=== PATIENT | female | born 1995 | race Caucasian/White ===

== ENCOUNTER 2017-07-07 11:27 | Emergency (ER) | payer OTHER ==
[2017-07-07 11:48] VITALS: BP 95/56; PULSE 92; RESP 18; TEMP 98.7
[2017-07-07] MEDS ORDERED: cefTRIAXone 250 MG VIAL IM STA (12:00)
[2017-07-07] MEDS ORDERED: AZITHROMYCIN 500 MG TAB PO STA (12:01)
--- NOTE | 2017-07-07 12:17 | ED ---
General Adult HPI - General Chief complaint: Upper Respiratory Infection Stated complaint: Cough Time Seen by Provider: 07/07/17 11:56 Source: patient, RN notes reviewed Mode of arrival: ambulatory Limitations: no limitations - History of Present Illness Initial comments: Patient [id number] female who presents emergency room today with multiple complaints. She does admit that she's had cough congestion over the last month. She states seems to be getting worse. She doesn't seem production at times. Patient also admits that she was in a sexual relationship and her partner did tell her that they were positive for chlamydia. She states she has had some discharge and drainage vaginal. She denies any other complaints or associated symptoms at this time. Patient denies any recent fever, chills, shortness of breath, chest pain, back pain, abdominal pain, nausea or vomiting, numbness or tingling, dysuria or hematuria, constipation or diarrhea, headaches or visual changes, or any other complaints. - Related Data Home Medications Medication Instructions Recorded Confirmed No Known Home Medications [No 07/07/17 07/07/17 Known Home Medications] Allergies Allergy/AdvReac Type Severity Reaction Status Date / Time ibuprofen [From Motrin] Allergy Swelling Verified 07/07/17 12:01 Review of Systems ROS Statement: Those systems with pertinent positive or pertinent negative responses have been documented in the HPI. ROS Other: All systems not noted in ROS Statement are negative. Past Medical History Past Medical History: No Reported History History of Any Multi-Drug Resistant Organisms: None Reported Past Surgical History: No Surgical Hx Reported Past Psychological History: No Psychological Hx Reported Smoking Status: Current some day smoker Past Alcohol Use History: Occasional Past Drug Use History: None Reported General Exam - General Exam Comments Initial Comments: General: The patient is awake and alert, in no distress, and does not appear acutely ill. Eye: Pupils are equal, round and reactive to light, extra-ocular movements are intact. No nystagmus. There is normal conjunctiva bilaterally. No signs of icterus. Ears, nose, mouth and throat: There are moist mucous membranes and no oral lesions. Neck: The neck is supple, there is no tenderness or JVD. Cardiovascular: There is a regular rate and rhythm. No murmur, rub or gallop is appreciated. Respiratory: Lungs are clear to auscultation, respirations are non-labored, breath sounds are equal. No wheezes, stridor, rales, or rhonchi. Gastrointestinal: Soft, non-distended, non-tender abdomen without masses or organomegaly noted. There is no rebound or guarding present. No CVA tenderness. Bowel sounds are unremarkable. Musculoskeletal: Normal ROM, no tenderness. Strength 5/5. Sensation intact. Pulses equal bilaterally 2+. Neurological: A&O x 3. CN II-XII intact, There are no obvious motor or sensory deficits. Coordination appears grossly intact. Speech is normal. Skin: Skin is warm and dry and no rashes or lesions are noted. Psychiatric: Cooperative, appropriate mood & affect, normal judgment. Limitations: no limitations Course Vital Signs 07/07/17 11:45 Temperature 98.7 F Pulse Rate 92 Respiratory 18 Rate Blood Pressure 95/56 O2 Sat by Pulse 100 Oximetry Medical Decision Making - Medical Decision Making Options were discussed with patient about a pelvic exam here the emergency room she has declined. She states that her sexual partner was positive for chlamydia. Advised patient that we should treat her prophylactically due to this. Also advised her that we could perform pelvic exam to confirm with cultures. She has declined a pelvic would like to be treated. She will be given Rocephin IM 250 mg along with azithromycin thousand milligrams by mouth. Chest x-rays negative. Advised patient to stop smoking. Advised patient to use Claritin for possible nasal drainage. Advised patient. The family doctor return for new concerns. Disposition Clinical Impression: STD (female), Cough Disposition: HOME SELF-CARE Condition: Good Instructions: Sexually Transmitted Diseases (ED) Additional Instructions: Please refrain from any sexual contact all symptoms completely resolved. Please follow-up the family doctor or health clinic for further testing or OB/ WELFARE INTERVIEWER if symptoms persist. Please stop smoking as discussed and use Claritin or Benadryl for symptoms as needed. Please return to emergency room for any other concerns. Referrals: Nonstaff,Physician [Primary Care Provider] - 1-2 days Time of Disposition: 12:35
--- NOTE | 2017-07-07 12:18 | XR ---
EXAMINATION TYPE: XR chest 2V DATE OF EXAM: 07/07/2017 COMPARISON: NONE TECHNIQUE: PA and lateral views submitted. HISTORY: Cough FINDINGS: The lungs are clear and there is no pneumothorax, pleural effusion, or focal pneumonia. Curvature o f the spine noted. IMPRESSION: 1. No acute process.
== END 2017-07-07 12:44 | disposition home or self-care (01) ==
LOC: EC 11:27
DX: A64 Unspecified sexually transmitted disease (principal); R05 Cough; R09.89 Other specified symptoms and signs involving the circulatory and respiratory systems; F17.200 Nicotine dependence, unspecified, uncomplicated; Z88.6 Allergy status to analgesic agent
CPT/HCPCS: 71020; 99283; 96372; J0696